=== PATIENT | male | born 1975 | race Two or more races ===

== ENCOUNTER 2024-06-29 07:01 | Emergency (ER) | payer SELFPAY ==
[~2024-06-29] VITALS: Ht 177.8 cm; Wt 75.0 kg
[2024-06-29 07:01] VITALS: TEMP 77.4; O2SAT 90
[2024-06-29 07:30] VITALS: BP 101/47
[2024-06-29] MEDS: SODIUM CHLORIDE 0.9% (SEPSIS BOLUS) IV ONE (08:15)
[2024-06-29 08:28] LABS: HEMATOCRIT. 45.1 % (42.0-52.0); HEMOGLOBIN. 14.1 g/dL (14.0-18.0); MEAN CORPUSCULAR HEMOGLOBIN 35.2 pg (28.0-32.0); MEAN CORPUSCULAR HGB CONC 31.3 g/dL (31.0-37.0); MEAN CORPUSCULAR VOLUME 112.3 fL (80.0-94.0); PLATELET 93 x1000/uL (130-400); RED BLOOD CELL COUNT 4.02 mill/uL (4.7-6.1); RED CELL DISTRIBUTION WIDTH 14.2 % (11.6-14.6)
[2024-06-29 08:31] LABS: DIFFERENTIAL COMMENT 1
[2024-06-29 08:36] LABS: CHLORIDE 109 mEq/L (98-107); POTASSIUM 3.2 mEq/L (3.5-5.1); SODIUM 142 mEq/L (136-145)
[2024-06-29 08:38] LABS: CALCIUM 6.2 mg/dL (8.7-10.4)
[2024-06-29 08:42] LABS: CREATININE 1.5 mg/dL (0.6-1.3); GLUCOSE 103 mg/dL (70-105)
[2024-06-29 08:43] LABS: TROPONIN I HIGH SENSITIVITY 38 ng/L (3.0-53); UREA NITROGEN BLOOD 30 mg/dL (9-23)
[2024-06-29 08:44] LABS: ALANINE AMINOTRANSFERASE 218 IU/L (10-49); ALBUMIN 1.9 g/dL (3.2-4.8); ASPARTATE AMINOTRANSFERASE 293 IU/L (<34)
[2024-06-29 08:45] LABS: BILIRUBIN DIRECT 0.5 mg/dL (<=3.0); BILIRUBIN TOTAL 0.7 mg/dL (0.1-1.0); PROTEIN TOTAL 3.6 g/dL (6.0-8.3)
[2024-06-29 08:53] LABS: INR 1.4; PROTHROMBIN TIME 14.8 sec (9.6-11.0)
[2024-06-29 09:19] LABS: LACTIC ACID 6.6 mmol/L (0.4-2.0)
[2024-06-29 09:22] LABS: CARBON DIOXIDE < 10 mEq/L (21-32)
[2024-06-29] MEDS ORDERED: SODIUM BICARBONATE 150 MEQ in SODIUM CHLORIDE 0.45% 850 ML IV SCH (09:30)
[2024-06-29] MEDS: SODIUM BICARBONATE 8.4% 50MEQ/50ML SYR IV ONE ×3 (09:31→11:34)
[2024-06-29 09:35] LABS: NUCLEATED RED BLOOD CELLS 2 /100 WBC; PLATELET ESTIMATE DECREASED
[2024-06-29] MEDS ORDERED: KCL 20MEQ/100ML PREMIX 100 ML IV SCH (09:45)
[2024-06-29] MEDS: SODIUM BICARBONATE 150 MEQ in SODIUM CHLORIDE 0.45% 850 ML IV SCH (10:08)
[2024-06-29 10:50] VITALS: PULSE 0; RESP 28; O2SAT 0
[2024-06-29] MEDS: DEXTROSE 50% WATER 50ML SYRINGE IV ONE (10:50)
[2024-06-29 10:59] LABS: BG BASE EXCESS -24.8 mmol/L (-2.0-3.0); BG CARBOXYHEMOGLOBIN 0.3 % (0.5-1.5); BG DEOXYHEMOGLOBIN 8.4 % (0.0-5.0); BG FRACTION INSPIRED OXYGEN 100; BG HCO3 ACT 7.1 mmol/L (21.0-28.0); BG METHEMOGLOBIN 0.3 % (0.5-1.5); BG OXYGEN SATURATION 91.5 % (94.0-98.0); BG PCO2 36.9 mmHg (35.0-48.0); BG PH 6.904 (7.350-7.450); BG PO2 76.7 mmHg (83.0-108.0); BG SAMPLE SITE RIGHT RADIAL; BG TOTAL HEMOGLOBIN 11.1 g/dL (13.5-17.5)
[2024-06-30] MEDS ORDERED: SODIUM BICARBONATE 8.4% 50MEQ/50ML SYR IV ONE (12:00)
== END 2024-06-29 12:21 ==
LOC: ER 07:17
DX: T68.XXXA Hypothermia, initial encounter (principal); I46.9 Cardiac arrest, cause unspecified; E87.20 Acidosis, unspecified
CPT/HCPCS: 80076; 80048; 82962; 83605; 85025; 85610; 86850; 86900; 86901; 84484; 36415; 84145; 82805; 82375; 92950; 31500; 94664; 93005; 94070; 98960; 96360; 96361; 99291; 99292; 36600; J3480; J3490 ×2; J7030; Z7610 ×4; 94002; A4606